=== PATIENT | female | born 1965 | race Caucasian/White ===

== ENCOUNTER 2020-05-06 10:35 | Emergency (ER) | payer BC, SELFPAY ==
[2020-05-06 11:00] VITALS: BP 146/76; PULSE 93; RESP 18; TEMP 37; O2SAT 96; BMI 41.1
--- NOTE | 2020-05-06 11:15 | HMH.EDUTC ---
[facility] [place] Disposition Clinical Impression: Exposure to COVID-19 virus Disposition: Home, Self-Care Condition on Discharge: Good Instructions: DI for COVID-19 (Suspected or Confirmed ), Coronavirus Disease 2019, Preventing the Spread of Coronavirus Discharge Instructions Additional Instructions: *Monitor Temp, Over the counter Motrin or Tylenol as directed/as needed Tylenol every 4 hours and Motrin every 6 hours (as long as your family doctor has told you that you can take it) for fever or pain. and straight to ER if unable to lower temp less than 101.0 after medication given *Warm salt water gargles may help to soothe the throat *Throat Lozenges *Warm fluids like tea with honey may help to soothe the throat *Sleep elevated *Humidifier/Vaporizer Follow up IMMEDIATELY for new or worsening symptoms or no Noticeable improvement over the next 48-72 hours. 911 for difficulty breathing or swallowing You were tested for today for COVID19 your test result should be back in the next 24-48 hours, you may call to the [facility] to see if your test results are back in the next 48 hours [phone] [facility] hours are 9am-9pm You was given a handout with instructions for Self Quarantine and Self isolation for while you wait on test results and what to do if they are positive If you are positive the Health Dept will be contacting you also Referrals: Delphine Gonzalez PA [Primary Care Provider] - As needed Forms: Work/School Release Time of Disposition: 11:19 Medical Decision Making - Yoshi Inquiry Pt receiving controlled substance: No Yoshi was queried for this patient: No Vital Signs: 05/06/20 11:00 Temperature 98.6 F Temperature Source Oral Pulse Rate [Right Brachial] 93 H Respiratory Rate 18 Blood Pressure [Right Arm] 146/76 H Blood Pressure Mean [Right Arm] 99 Blood Pressure Source [Right Arm] Automatic Cuff Blood Pressure Position [Right Arm] Sitting 02 Sat by Pulse Oximetry 96 Oxygen Delivery Method Room Air Orders (Tests/Meds): ORDERS Category Date Time Status Covid-19 Nasal PCR ([facility]) Routine Lab 05/06/20 11:00 Received [facility] [place] HPI - General Stated complaint: covid test Time Seen by Provider: 05/06/20 11:15 Mode of Arrival: Ambulatory Source of Information: Patient Limitations: No Limitations Description of Symptoms (Recalled from Triage Doc. by RN): COVID TEST D/T EXPOSURE. C/O HEADACHE, CONGESTION, AND COUGH HEENT Symptoms (Recalled from RN notes): No Resp Symptoms (Recalled from RN notes): No Skin Symptoms (Recalled from RN notes): No MS Symptoms (Recalled from RN notes): No Functional Status (Recalled from RN notes): WNL - History of Present Illness Provider Complaint: Patient state that she was recently exposed to someone at work that has since tested positive for COVID and her work wanted her to get tested State that she has been having runny nose with nasal congestion cough and headache but has similar symptoms with her allergies - Related Data Allergies Allergy/AdvReac Type Severity Reaction Status Date / Time acetaminophen [From Lortab] Allergy Verified 05/06/20 11:15 codeine Allergy Verified 05/06/20 11:15 hydrocodone [From Lortab] Allergy Verified 05/06/20 11:15 paroxetine [From Paxil] Allergy Verified 05/06/20 11:15 pseudoephedrine Allergy Verified 05/06/20 11:15 [From Sudafed] Sulfa (Sulfonamide Allergy Verified 05/06/20 11:15 Antibiotics) - Worker's Comp Is this a Worker's Comp case?: No [facility] History - Hepatitis A Screen Drug use history?: No High risk sexual behaviors?: No History of sexually transmitted infection?: No Currently employed?: No Childcare worker?: No Do you have indoor plumbing?: Yes Do you have electricity?: Yes Attestation statement:: This patient has been screened for Hepatitis A risk factors. I have reviewed the patient's past medical history: Yes ROS Obtained: Yes All systems reviewed & no additional complaints, Yes Systems reviewed as a
[2020-05-06 11:16] VITALS: BP 146/76; PULSE 93; RESP 18; TEMP 37; O2SAT 96
== END 2020-05-06 11:20 | disposition home or self-care (01) ==
PROVIDERS: Emergency Provider Nurse Practitioner; PCP Nurse Practitioner Family
DX: Z20.822 Contact with and (suspected) exposure to COVID-19 (principal); R51.9 Headache, unspecified
CPT/HCPCS: 99202; G0463; U0003

== ENCOUNTER → 2021-03-04 11:03 | Outpatient (CLI) | payer BC, SELFPAY | PROVIDERS: Visit Provider Nurse Practitioner Family | DX: Z20.822 Contact with and (suspected) exposure to COVID-19 (principal); R50.9 Fever, unspecified; R05.9 Cough, unspecified | CPT/HCPCS: C9803; U0003; U0005 ==

== ENCOUNTER 2023-09-20 13:36 | Emergency (ER) | payer BC, SELFPAY ==
[2023-09-20 14:55] VITALS: BP 127/73; PULSE 94; RESP 20; TEMP 36.9; O2SAT 98; BMI 40.8
--- NOTE | 2023-09-20 15:12 | ED_ITS ---
Discharge Plan Disposition Patient Disposition: Home, Self-Care Condition: Good Prescriptions Prescriptions: New cephalexin 500 mg tablet 500 mg PO BID 7 Days Qty: 14 0RF No Action cetirizine 10 mg tablet 10 mg PO desvenlafaxine succinate 50 mg tablet extended release 24 hr PO lisinopril 2.5 mg tablet 2.5 mg PO fenofibrate 54 mg tablet 54 mg PO glimepiride 1 mg tablet 1 mg PO Livalo 1 mg tablet 1 mg PO Jardiance 10 mg tablet 10 mg PO omeprazole 20 mg capsule,delayed release(DR/EC) 20 mg PO benzonatate 100 mg capsule 100 mg PO TID PRN (Reason: cough) Qty: 30 1RF Referrals Follow up/Referrals: Lakeshia Chappell APRN [Primary Care Provider] - See instructions Activity Restrictions/Add. Instructions Additional Instructions/Restrictions: monitor for worsening of symptoms, if no improvement or worsening return antibiotics as ordered Clinical Impressions Clinical Impression: Insect bite Instructions Patient Instructions: DI for Insect Bites and Stings Discharge ED Provider: Devon ([facility] [facility] [place] [facility] [place] General Stated complaint: right side of leg bug bite swollen and blue Mode of Arrival: Wheelchair Limitations: No Limitations Time Seen by Provider: 09/20/23 15:12 HEENT Symptoms (Recalled from RN notes): No Resp Symptoms (Recalled from RN notes): No Skin Symptoms (Recalled from RN notes): Yes GI/ Symptoms (Recalled from RN notes): No MS Symptoms (Recalled from RN notes): No History of Present Illness Provider Complaint: 57 yr old female presents for insect bite to rt calf Related Data Home Medications Medication Instructions Recorded Confirmed cetirizine 10 mg tablet 10 mg PO 03/04/21 03/04/21 desvenlafaxine succinate 50 mg tab PO 03/04/21 03/04/21 tablet,extended release 24 hr empagliflozin 10 mg tablet 10 mg PO 03/04/21 03/04/21 (Jardiance) fenofibrate 54 mg tablet 54 mg PO 03/04/21 03/04/21 glimepiride 1 mg tablet 1 mg PO 03/04/21 03/04/21 lisinopril 2.5 mg tablet 2.5 mg PO 03/04/21 03/04/21 omeprazole 20 mg capsule,delayed 20 mg PO 03/04/21 03/04/21 release pitavastatin calcium 1 mg tablet 1 mg PO 03/04/21 03/04/21 (Livalo) Previous Rx's Medication Instructions Recorded benzonatate 100 mg capsule 100 mg PO TID PRN cough #30 caps 03/04/21 cephalexin 500 mg tablet 500 mg PO BID 7 days #14 tabs 09/20/23 Allergies Allergy/AdvReac Type Severity Reaction Status Date / Time acetaminophen [From Lortab] Allergy Verified 03/04/21 11:20 codeine Allergy Verified 03/04/21 11:20 hydrocodone [From Lortab] Allergy Verified 03/04/21 11:20 paroxetine [From Paxil] Allergy Verified 03/04/21 11:20 pseudoephedrine Allergy Verified 03/04/21 11:20 [From Sudafed] Sulfa (Sulfonamide Allergy Verified 03/04/21 11:20 Antibiotics) [facility] Disclaimer: The information contained in this section may have been updated after the patient was seen, as this information can be updated by other users. 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) Smoking Status: Never smoker alcohol intake: never current occupational status: unemployed Travel in the last 8 weeks: None ROS Obtained: Yes All systems reviewed & no additional complaints except as documented Constitutional Constitutional: Reports system reviewed and no additional complaints, except as documented Eyes Eyes: Reports system reviewed and no additional complaints, except as documented ENT Ears, Nose, Mouth, and Throat: Reports system reviewed and no additional complaints, except as documented Cardiovascular Cardiovascular: Reports system reviewed and no additional complaints, except as documented Respiratory Respiratory: Reports system reviewed and no additional complaints, except as documented Gastrointestinal Gastrointestingal: Reports system reviewed and no additional complaints, except as documented Musculoskeletal Musculoskeletal: Reports system reviewed and no additional complaints, except as documented and Reports as per HPI Integumentary/Breasts Skin/Breast: Reports system reviewed and no additional complaints, except as documented, Reports as per HPI, Reports wounds (small dime size red/dark area on rt calf) and Reports other Neurologic Neurologic: Reports system reviewed and no additional complaints, except as documented Endocrine Endocrine: Reports system reviewed and no additional complaints, except as documented Hematologic/Lymphatic Henatologic/Lymphatic: Reports system reviewed and no additional complaints, except as documented Physical Exam General General appearance: alert and in no apparent distress Respiratory Respiratory exam: Present normal lung sounds bilaterally Cardiovascular Cardiovascular exam: Present regular rate and normal rhythm Expanded Lower Extremity Exam Left: Leg image: 2 1. red insect bite with dark area Neurological Exam Neurological exam: Present alert and oriented X3 Skin Skin exam: Present warm and other Medical Decision Making Medical Records Medical records reviewed: Yes I reviewed the patient's medical records. Yoshi Inquiry Pt receiving controlled substance: No Yoshi was queried for this patient: No
[2023-09-20 15:22] VITALS: BP 127/73; PULSE 94; RESP 20; TEMP 36.9; O2SAT 98
== END 2023-09-20 15:28 | disposition home or self-care (01) ==
PROVIDERS: Emergency Provider Nurse Practitioner Family; PCP Nurse Practitioner Family
DX: S80.861A Insect bite (nonvenomous), right lower leg, initial encounter (principal); W57.XXXA Bitten or stung by nonvenomous insect and other nonvenomous arthropods, initial encounter
CPT/HCPCS: 99204; 99212; G0463